=== PATIENT | female | born 1990 | race Caucasian/White ===

== ENCOUNTER 2016-12-26 21:17 | Emergency (ER) | payer OTHER ==
[2016-12-26 21:18] VITALS: BP 175/95; PULSE 89; RESP 16; TEMP 98.1; O2SAT 100
--- NOTE | 2016-12-26 23:35 | PD ---
HPI Chief Complaint: Psychiatric Symptoms Time Seen by Provider: 23:32 Travel History International Travel<30 days: No Contact w/Intl Traveler<30days: No Traveled to known affect area: No History of Present Illness HPI 26-year-old female that presents to the ED for evaluation of psych. Patient has a chronic history of psychiatric illness including bipolar, depression and anxiety as well as history of seizures. Per patient she recently moved from [place] and she does not have any providers for medical care. Per patient she has no insurance. Per patient she is to have Medicaid in [place] but not anymore. Patient came here to live here. Per patient she feels anxious and depressed. Per patient his been ongoing for the past week. She denies any seizures. She denies any drug abuse or alcohol abuse. She states that she went to see [facility] and it per her daughter brought her here. She denies any other medical issues. Per patient she does have thoughts of hurting herself but this only happened on 4 days ago but not today. Per significant other she also apparently wants to hurt her mother secondary to an argument the hand. No other medical issues. PFSH Past Medical History Anxiety: Yes Depression: Yes Diminished Hearing: No Psychiatric: Yes (BIPOLAR, MULTIPLE PERSONALITY, SCHIZOPHRENIA) Seizures: Yes Tetanus Vaccination: Unknown Influenza Vaccination: No ?: Not LMP: 12/22/16 Past Surgical History Cholecystectomy: Yes Other Surgery: Yes (FACIAL SURG X8) Social History Alcohol Use: No Tobacco Use: Yes (1PPD) Substance Use: Yes (MARIJUANA) Allergies-Medications (Allergen,Severity, Reaction): Coded Allergies: Vicodin (Verified Allergy, Unknown, 12/26/16) Reported Meds & Prescriptions Reported Meds & Active Scripts Active No Active Prescriptions or Reported Medications Review of Systems Except as stated in HPI: all other systems reviewed are Neg Physical Exam Narrative GENERAL: SKIN: Warm and dry. HEAD: Atraumatic. Normocephalic. EYES: Pupils equal and round. No scleral icterus. No injection or drainage. ENT: No nasal bleeding or discharge. Mucous membranes pink and moist. Tongue is midline. No uvula deviation. NECK: Trachea midline. No JVD. CARDIOVASCULAR: Regular rate and rhythm. No murmurs, S3, S4. RESPIRATORY: No accessory muscle use. Clear to auscultation. Breath sounds equal bilaterally. GASTROINTESTINAL: Abdomen soft, non-tender, nondistended. Hepatic and splenic margins not palpable. MUSCULOSKELETAL: Extremities without clubbing, cyanosis, or edema. No obvious deformities. Full range of motion of the upper and lower extremities bilaterally. 2+ pulses bilaterally. NEUROLOGICAL: Awake and alert. No obvious cranial nerve deficits. Motor grossly within normal limits. Five out of 5 muscle strength in the arms and legs. Normal speech. PSYCHIATRIC: Appropriate mood and affect; insight and judgment normal. Data Data Last Documented VS Vital Signs Date Time Temp Pulse Resp B/P Pulse Ox O2 Delivery O2 Flow Rate FiO2 12/26/16 21:18 98.1 89 16 175/95 100 Room Air Orders Complete Blood Count With Diff (12/26/16 22:44) Comprehensive Metabolic Panel (12/26/16 22:44) Psych Screen (12/26/16 22:44) Drug Screen, Random Urine (12/26/16 22:44) Alcohol (Ethanol) (12/26/16 22:44) MDM Medical Decision Making Medical Screen Exam Complete: Yes Emergency Medical Condition: Yes Medical Record Reviewed: Yes Differential Diagnosis Depression versus suicidal ideation versus anxiety versus adjustment disorder versus mood disorder versus bipolar disorder versus schizophrenia versus paranoid disorder versus psychosis versus substance abuse versus alcohol abuse versus alcohol induced psychosis versus homicidality addition versus cutting versus personality disorder Narrative Course 26-year-old female that presents to the ED for evaluation of psych. Patient was properly examined and was found to have signs and symptoms consistent appears to be psychiatric illness. Doesn't of acute medical distress. Labs were drawn. Patient will be medically clear. Okay to be seen by psych. Mental health screening was discussed with the patient. Diagnosis Primary Impression: Bipolar 1 disorder Scripts No Active Prescriptions or Reported Meds Javier Russell Dec 26, 2016 23:35
[2016-12-26 23:43] LABS: AUTOMATED NEUTROPHIL # 7.2 TH/MM3 (1.8-7.7); BASOPHIL # 0.2 TH/MM3 (0-0.2); BASOPHIL % 1.7 % (0.0-2.0); EOSINOPHIL # 0.2 TH/MM3 (0-0.4); HEMATOCRIT 40.2 % (35.0-46.0); HEMO FLAGS DIFF FINAL; LYMPH % 27.7 % (9.0-44.0); LYMPHOCYTE # 3.1 TH/MM3 (1.0-4.8); MEAN CELL VOLUME 86.2 FL (80.0-100.0); MEAN CORPUSCULAR HEMOGLOBIN 29.8 PG (27.0-34.0); MEAN CORPUSCULAR HGB CONC 34.6 % (32.0-36.0); NEUT % 63.6 % (16.0-70.0); PLATELET COUNT 285 TH/MM3 (150-450); RED BLOOD COUNT 4.67 MIL/MM3 (4.00-5.30); RED CELL DISTRIBUTION WIDTH 13.3 % (11.6-17.2); WHITE BLOOD COUNT 11.2 TH/MM3 (4.0-11.0)
[2016-12-26 23:50] LABS: AMPHETAMINE, URINE NEG (NEG); BARBITURATES, URINE NEG (NEG); COCAINE, URINE NEG (NEG)
[2016-12-26 23:59] LABS: ANION GAP 9 MEQ/L (5-15); AST (GOT) 18 U/L (15-37); BICARBONATE 26.7 MEQ/L (21.0-32.0); BLOOD UREA NITROGEN 8 MG/DL (7-18); CHLORIDE 105 MEQ/L (98-107); GLOMERULAR FILTRATION RATE 113 ML/MIN (>89); POTASSIUM 3.6 MEQ/L (3.5-5.1); SODIUM (NA) 141 MEQ/L (136-145)
[2016-12-27] LABS: ALT (GPT) 24 U/L (10-53)
[2016-12-27 00:02] LABS: ALKALINE PHOSPHATASE 83 U/L (45-117); TOTAL BILIRUBIN ADULT 0.2 MG/DL (0.2-1.0)
[2016-12-27 02:03] VITALS: BP 157/81; PULSE 77; RESP 20; O2SAT 99
[2016-12-27] MEDS ORDERED: CELE10TA PO (03:06)
[2016-12-27] MEDS ORDERED: CLON1 PO (03:06)
[2016-12-27 06:00] VITALS: BP 126/79; PULSE 92; RESP 18; O2SAT 98
[2016-12-27 10:14] VITALS: BP 126/71; PULSE 82; RESP 16; O2SAT 91
--- NOTE | 2016-12-27 12:44 | PD ---
History of Present Illness Chief Complaint: Psychiatric Symptoms Time Seen by Provider: 12:15 Travel History International Travel<30 Days: No Contact w/Intl Traveler<30days: No Known affected area: No Legal Status Legal Status: Voluntary History of Present Illness: History of Present Illness HPI 26-year-old female with a reported history of bipolar , anxiety and depression who presents to the ED on a voluntary basis for evaluation of psych. Per patient she recently moved from [place] and she does not have any providers for medical care, has no insurance and does not have her medication.States that she has been having suicidal thoughts for the past 4 days but has not made any attempts to harm herself. She denies feeling suicidal at this time. EMR is reviewed. no previous contact with [facility] psychiatry. Patient is monitored in secure unit in ED. She presented no behavioral concerns and no suicidality. Slept well and ate well. She remained in behavioral control. This morning she is denying any suicidal ideation, intent or plan and is requesting discharge from the hospital. She does not appear significantly depressed or anxious at this time. There is no indication that she is experiencing any psychosis. No jackie. She does acknowledge that at the time she presented to the hospital she was involved in an argument with her mother. PFSH Past Medical History Anxiety: Yes Depression: Yes Diminished Hearing: No Psychiatric: Yes (BIPOLAR, MULTIPLE PERSONALITY, SCHIZOPHRENIA) Seizures: Yes Tetanus Vaccination: Unknown Influenza Vaccination: No ?: Not LMP: 12/22/16 Past Surgical History Cholecystectomy: Yes Other Surgery: Yes (FACIAL SURG X8) Psychiatric History Psychiatric History Hx Psychiatric Treatment: Has been dx w BPD, anxiety and depression. History of Inpatient Treatment: Yes (In [place]) Guns or firearms in home: No Social History Single female. born in [place]. moved to [facility] recently. Lives with her boyfriend. Hx Alcohol Use: No Hx Tobacco Use: Yes (1PPD) Hx Substance Use: No Substance Use Type: Marijuana Hx of Substance Use Treatment: No Family Psychiatric History Negative Allergies-Medications (Allergen,Severity, Reaction): Coded Allergies: Vicodin (Verified Allergy, Unknown, 12/26/16) Reported Meds & Prescriptions Reported Meds & Active Scripts Active Reported Celexa (Citalopram Hydrobromide) 10 Mg Tab 10 Mg PO DAILY Klonopin (Clonazepam) 1 Mg Tab 1 Mg PO DAILY Review of Systems Except as stated in HPI: all other systems reviewed are Neg Psychiatric: COMPLAINS OF: Anxiety, Depression Exam Alert: Yes [place]: Person (ox4) Mood: Calm Affect: Appropriate Speech: Clear, Logical Eye Contact: Normal Memory Intact: Comment (not impaired) Hallucinations: Other (negative) Delusions: No Suicidal: Ideation (deneis any) Homicidal: Ideation (deneis any) Insight/Judgement Fair. Not impaired. MDM Medical Decision Making Medical Record Reviewed: Yes Assessment/Plan 26 year old female with reported hx of bipolar disorder, anxiety disorder and depression who presents to Ed on a voluntary basis after she was feeling suicidal for past 4 days. She has not made any attempts at harming herself. She currently denies any suicidality. She is requesting referrals for medication management services and will be provided w with numbers to [facility]. At this time this patient does not meet criteria for inpatient treatment. Orders Complete Blood Count With Diff (12/26/16 22:44) Comprehensive Metabolic Panel (12/26/16 22:44) Psych Screen (12/26/16 22:44) Drug Screen, Random Urine (12/26/16 22:44) Alcohol (Ethanol) (12/26/16 22:44) Diet Regular Basic (12/27/16 Lunch) Results Vital Signs Date Time Temp Pulse Resp B/P Pulse Ox O2 Delivery O2 Flow Rate FiO2 12/27/16 10:14 82 16 126/71 91 Room Air 12/27/16 06:00 92 18 126/79 98 Room Air 12/27/16 02:03 77 20 157/81 99 Room Air 12/26/16 21:18 98.1 89 16 175/95 100 Room Air Laboratory Tests Test 12/26/16 23:32 White Blood Count 11.2 Red Blood Count 4.67 Hemoglobin 13.9 Hematocrit 40.2 Mean Corpuscular Volume 86.2 Mean Corpuscular Hemoglobin 29.8 Mean Corpuscular Hemoglobin 34.6 Concent Red Cell Distribution Width 13.3 Platelet Count 285 Mean Platelet Volume 7.3 Neutrophils (%) (Auto) 63.6 Lymphocytes (%) (Auto) 27.7 Monocytes (%) (Auto) 5.0 Eosinophils (%) (Auto) 2.0 Basophils (%) (Auto) 1.7 Neutrophils # (Auto) 7.2 Lymphocytes # (Auto) 3.1 Monocytes # (Auto) 0.6 Eosinophils # (Auto) 0.2 Basophils # (Auto) 0.2 CBC Comment DIFF FINAL Differential Comment Sodium Level 141 Potassium Level 3.6 Chloride Level 105 Carbon Dioxide Level 26.7 Anion Gap 9 Blood Urea Nitrogen 8 Creatinine 0.64 Estimat Glomerular Filtration 113 Rate Random Glucose 84 Calcium Level 9.5 Total Bilirubin 0.2 Aspartate Amino Transf 18 (AST/SGOT) Alanine Aminotransferase 24 (ALT/SGPT) Alkaline Phosphatase 83 Total Protein 8.3 Albumin 4.2 Urine Opiates Screen NEG Urine Barbiturates Screen NEG Urine Amphetamines Screen NEG Urine Benzodiazepines Screen NEG Urine Cocaine Screen NEG Urine Cannabinoids Screen POS Ethyl Alcohol Level LESS THAN 3 Diagnosis Primary Impression: Bipolar disorder Psychiatrically Cleared: Yes Referrals: [facility] (Out patient) call for appointment Departure Forms: Tests/Procedures Patient Instructions: General Instructions, Stress (ED) Med/ Other Pt Specific Info: No Meds Exist/No RX given Disposition: DISCHARGE HOME Faiza Brown Dec 27, 2016 12:44
== END 2016-12-27 14:20 | disposition home or self-care (01) ==
LOC: NEPD 21:17 → NEPJ 12-27 14:20
DX: F31.9 Bipolar disorder, unspecified (principal); R56.9 Unspecified convulsions; F20.9 Schizophrenia, unspecified; F44.81 Dissociative identity disorder; F17.210 Nicotine dependence, cigarettes, uncomplicated; F12.90 Cannabis use, unspecified, uncomplicated
CPT/HCPCS: 80053; 80307; 85025; 99285